=== PATIENT | male | born 1935 | race Caucasian/White ===

== ENCOUNTER 2019-11-14 21:21 | Emergency (ER) | payer MEDICARE, OTHER ==
[~2019-11-14] VITALS: Ht 172.7 cm; Wt 125.0 kg
--- NOTE | 2019-11-14 22:00 | NUR ---
GAVE PATIENT TURKEY SANDWICH,VITAMIN D MILK, ORANGE JUICE AND CRACKERS PATIENT EATING WELL WILL RE CHECK BG AFTER MEAL
[2019-11-14 22:30] VITALS: BP 110/41
[2019-11-14 22:44] LABS: BASOPHILS # (AUTO) 0.1 X10'3 (0-0.2); BASOPHILS % (AUTO) 0.8 % (0-1); EOSINOPHILS # (AUTO) 0.6 X10'3 (0-0.9); EOSINOPHILS % (AUTO) 9.4 % (0-6); HEMATOCRIT 32.6 % (42.0-52.0); HEMOGLOBIN 11.2 g/dl (14.0-17.9); LYMPHOCYTES # (AUTO) 1.4 X10'3 (1.1-4.8); LYMPHOCYTES % (AUTO) 21.3 % (21-51); MEAN CORPUSCULAR HEMOGLOBIN 32.7 PG (27.0-31.0); MEAN CORPUSCULAR HGB CONC 34.4 g/dL (33.0-36.5); MEAN CORPUSCULAR VOLUME 95.1 FL (78-98); MEAN PLATELET VOLUME 7.9 FL (7.4-10.4); MONOCYTES # (AUTO) 0.7 X10'3 (0-0.9); MONOCYTES % (AUTO) 10.3 % (2-12); NEUTROPHILS # (AUTO) 3.9 X10'3 (1.8-7.7); NEUTROPHILS % (AUTO) 58.2 % (42-75); PLATELET COUNT 138 X10'3 (140-440); RED BLOOD COUNT 3.43 X10'6 (4.70-6.10); RED CELL DISTRIBUTION WIDTH 15.5 % (11.5-14.5); WHITE BLOOD COUNT 6.7 X10'3 (4.5-11.0)
[2019-11-14 22:53] LABS: PARTIAL THROMBOPLASTIN TIME 26 SECONDS (22-32)
[2019-11-14 22:55] LABS: ALANINE AMINOTRANSFERASE 30 U/L (12-78); ALBUMIN 3.4 G/DL (3.4-5.0); ALKALINE PHOSPHATASE 77 IU/L (46-116); ANION GAP 7 (8-16); ASPARTATE AMINO TRANSFERASE 34 U/L (10-37); BILIRUBIN,TOTAL 0.5 MG/DL (0.1-1.0); BLOOD UREA NITROGEN 39 MG/DL (7-18); BUN/CREATININE RATIO 32.8 (5.4-32.0); CALCIUM 9.3 MG/DL (8.5-10.1); CHLORIDE 105 MMOL/L (99-107); CREATININE 1.19 MG/DL (0.60-1.10); GLUCOSE 86 MG/DL (70-104); POTASSIUM 4.7 MMOL/L (3.5-5.1); SODIUM 139 MMOL/L (135-145); TOTAL PROTEIN 6.8 G/DL (6.4-8.2); eGFR 58 ML/MIN
[2019-11-14] MEDS ORDERED: dextrose 50%-water 50ml dispensing syringe IV ONE (23:15)
[2019-11-14] MEDS ORDERED: ketorolac tromethamine 15mg/ml inj. IM ONE (23:25)
== END 2019-11-15 00:35 | disposition home or self-care (01) ==
LOC: ER 21:22
DX: E11.649 Type 2 diabetes mellitus with hypoglycemia without coma (principal); M25.511 Pain in right shoulder; M25.569 Pain in unspecified knee; Z72.89 Other problems related to lifestyle; Z88.2 Allergy status to sulfonamides
CPT/HCPCS: 36415; 73030; 80053; 82948; 85025; 85610; 85730; 96372; 99284; J1885

== ENCOUNTER 2020-01-27 13:41 | Inpatient (IN) | payer MEDICARE, OTHER ==
[~2020-01-27] VITALS: Ht 172.7 cm; Wt 121.9 kg
[~2020-01-27 13:41] MED LIST: CARV6.253 PO; DYN250C PO; FERR-39 PO; FURO20TA4 PO; MULT-1085 PO; PIOG30TA71 PO; POTA20TA10 PO; SERT50TA10 PO; SIMV-45 PO; SUCR1TAB PO
[2020-01-27 14:31] LABS: BASOPHILS % (AUTO) 0.3 % (0-1); EOSINOPHILS % (AUTO) 0.1 % (0-6); HEMATOCRIT 30.5 % (42.0-52.0); HEMOGLOBIN 10.3 g/dl (14.0-17.9); LYMPHOCYTES # (AUTO) 1.2 X10'3 (1.1-4.8); LYMPHOCYTES % (AUTO) 12.4 % (21-51); MEAN CORPUSCULAR HEMOGLOBIN 32.5 PG (27.0-31.0); MEAN CORPUSCULAR HGB CONC 33.9 g/dL (33.0-36.5); MEAN CORPUSCULAR VOLUME 95.6 FL (78-98); MEAN PLATELET VOLUME 8.4 FL (7.4-10.4); MONOCYTES # (AUTO) 1.1 X10'3 (0-0.9); MONOCYTES % (AUTO) 11.5 % (2-12); NEUTROPHILS # (AUTO) 7.1 X10'3 (1.8-7.7); NEUTROPHILS % (AUTO) 75.7 % (42-75); PLATELET COUNT 146 X10'3 (140-440); RED BLOOD COUNT 3.19 X10'6 (4.70-6.10); RED CELL DISTRIBUTION WIDTH 14.6 % (11.5-14.5); WHITE BLOOD COUNT 9.4 X10'3 (4.5-11.0)
[2020-01-27 14:45] LABS: ALANINE AMINOTRANSFERASE 17 U/L (12-78); ALBUMIN/GLOBULIN RATIO 0.9 (1.1-1.5); ALKALINE PHOSPHATASE 91 IU/L (46-116); ANION GAP 5 (8-16); ASPARTATE AMINO TRANSFERASE 23 U/L (10-37); BILIRUBIN,TOTAL 0.8 MG/DL (0.1-1.0); BLOOD UREA NITROGEN 27 MG/DL (7-18); CALCIUM 8.4 MG/DL (8.5-10.1); CHLORIDE 94 MMOL/L (99-107); CREATININE 1.35 MG/DL (0.60-1.10); GLUCOSE 249 MG/DL (70-104); SODIUM 124 MMOL/L (135-145); TOTAL CARBON DIOXIDE 24.9 MMOL/L (24-32); TOTAL PROTEIN 6.5 G/DL (6.4-8.2); eGFR 50 ML/MIN
[2020-01-27 15:17] LABS: OCCULT BLOOD STOOL POSITIVE (Neg)
[2020-01-27 15:57] LABS: CLARITY,URINE CLOUDY (Clear); COLOR,URINE YELLOW (Yellow); GLUCOSE, URINE NEGATIVE (Neg); KETONES,URINE NEGATIVE (Neg); LEUKOCYTE ESTERASE ,URINE LARGE (Neg); NITRITES, URINE POSITIVE (Neg); OCCULT BLOOD,URINE MODERATE (Neg); PH,URINE 5.5 (4.8-8.0); PROTEIN,URINE 30 mg/dl (Neg); UA COLLECTION TYPE CLN CATCH MIDSTREAM; UROBILINOGEN,URINE 0.2 E.U/dL (0.2-1.0)
[2020-01-27 16:03] LABS: SQUAMOUS EPITHELIAL CELL,UR MODERATE /LPF (FEW); WBC,URINE TNTC /HPF (0-4)
[2020-01-27 16:09] LABS: BACTERIA,URINE 3+ /HPF (Neg)
[2020-01-27] MEDS ORDERED: ALFU10TA10 PO (16:18)
[2020-01-27] MEDS ORDERED: normal saline 1000ml 1,000 ML IV ONE (16:30)
[2020-01-27] MEDS ORDERED: CefTRIAXone 2gm/D5W 50ml 50 ML IV ONE (16:30)
[2020-01-27] MEDS ORDERED: HYDROcodone/acetaminophen 5mg/325mg tablet PO PRN (16:35)
[2020-01-27] MEDS ORDERED: magnesium Cl slow-release 64mg tablet PO PRN (16:35)
[2020-01-27] MEDS ORDERED: magnesium 2GM in 50ml NS 50 ML IV PRN (16:35)
[2020-01-27] MEDS ORDERED: ondansetron/PF 4mg/2ml inj IV PRN (16:35)
[2020-01-27] MEDS ORDERED: magnesium 4gm in 100ml NS 100 ML IV PRN (16:35)
[2020-01-27] MEDS ORDERED: potassium Cl 20 mEq SR tablet PO PRN ×2 (16:35)
[2020-01-27] MEDS ORDERED: potassium CL 10mEq/100ml bag 100 ML IV PRN ×2 (16:35)
[2020-01-27] MEDS ORDERED: morphine 2 MG/ML inj. syringe IV PRN (16:35)
[2020-01-27] MEDS ORDERED: acetaminophen 325mg tablet PO PRN ×2 (16:35)
[2020-01-27] MEDS ORDERED: normal saline 1000ml 1,000 ML IV SCH (16:35)
[2020-01-27] MEDS ORDERED: glucagon, human recombinant 1mg kit SUBCUT PRN (17:00)
[2020-01-27] MEDS ORDERED: dextrose 50%-water 50ml dispensing syringe IV PRN ×2 (17:00)
[2020-01-27] MEDS ORDERED: MESSAGE TO PHARMACY PO ONE (17:00)
[2020-01-27] MEDS ORDERED: dextrose ORAL solution 15 GM/59 ML bottle PO PRN ×2 (17:00)
--- NOTE | 2020-01-27 17:40 | NUR ---
Patient in room PCU 3014. I have received report from NORMA CUELLAR and had the opportunity to ask questions and assume patient care.
[2020-01-27 17:45] VITALS: BP 128/77
[2020-01-27 18:00] VITALS: BP 150/88
--- NOTE | 2020-01-27 18:05 | NUR ---
Problems reprioritized. Patient report given, questions answered & plan of care reviewed with DANILO RN.
[2020-01-27] MEDS: furosemide 10 MG/1 ML 10ml inj IV SCH (19:18)
[2020-01-27] MEDS: carvedilol 6.25mg tablet PO SCH (19:19)
[2020-01-27] MEDS: docusate sod 100mg capsule PO SCH (19:19)
[2020-01-27] MEDS: heparin, porcine 5000 units/ml vial SQ SCH (19:20)
[2020-01-27] MEDS: insulin Lispro (HumaLOG) vial - multi-dose SQ SCH (19:30)
[2020-01-27] MEDS: K and/or MAG REPLACEMENT MC SCH (20:00)
[2020-01-27] MEDS: tamsulosin 0.4mg capsule PO SCH (20:04)
[2020-01-27] MEDS: insulin glargine (Lantus) pen - multi-dose SQ SCH (22:20)
[2020-01-28] VITALS (7 sets, daily range): BP systolic 96–129; BP diastolic 41–69
[2020-01-28] MEDS ORDERED: PIOG30TA71 PO (05:38)
[2020-01-28 05:50] LABS: BASOPHILS % (AUTO) 0.3 % (0-1); EOSINOPHILS # (AUTO) 0.1 X10'3 (0-0.9); EOSINOPHILS % (AUTO) 1.4 % (0-6); HEMATOCRIT 27.5 % (42.0-52.0); HEMOGLOBIN 9.3 g/dl (14.0-17.9); LYMPHOCYTES % (AUTO) 12.2 % (21-51); MEAN CORPUSCULAR HEMOGLOBIN 32.3 PG (27.0-31.0); MEAN CORPUSCULAR HGB CONC 33.7 g/dL (33.0-36.5); MEAN CORPUSCULAR VOLUME 95.9 FL (78-98); MEAN PLATELET VOLUME 8.5 FL (7.4-10.4); NEUTROPHILS # (AUTO) 6.2 X10'3 (1.8-7.7); NEUTROPHILS % (AUTO) 74.1 % (42-75); PLATELET COUNT 125 X10'3 (140-440); RED BLOOD COUNT 2.86 X10'6 (4.70-6.10); RED CELL DISTRIBUTION WIDTH 14.5 % (11.5-14.5); WHITE BLOOD COUNT 8.3 X10'3 (4.5-11.0)
[2020-01-28 06:12] LABS: ALBUMIN 2.4 G/DL (3.4-5.0); ANION GAP 2 (8-16); BLOOD UREA NITROGEN 31 MG/DL (7-18); CALCIUM 7.8 MG/DL (8.5-10.1); CHLORIDE 97 MMOL/L (99-107); CREATININE 1.35 MG/DL (0.60-1.10); GLUCOSE 143 MG/DL (70-104); MAGNESIUM 1.8 MG/DL (1.5-2.4); POTASSIUM 4.3 MMOL/L (3.5-5.1); SODIUM 124 MMOL/L (135-145); TOTAL CARBON DIOXIDE 24.6 MMOL/L (24-32); eGFR 50 ML/MIN
--- NOTE | 2020-01-28 07:15 | NUR ---
Patient in room PCU 3014. I have received report from Tony CUELLAR and had the opportunity to ask questions and assume patient care.
--- NOTE | 2020-01-28 07:26 | NUR ---
Patient in room PCU 3014. I have received report from ALISA Jimenez and had the opportunity to ask questions and assume patient care. pt sitting up in chair, resting comfortable, no complaints at this time. just worked with pt
[2020-01-28] MEDS: potassium Cl 20 mEq SR tablet PO SCH (08:00)
[2020-01-28] MEDS: K and/or MAG REPLACEMENT MC SCH ×2 (08:00→20:00)
[2020-01-28] MEDS: furosemide 10 MG/1 ML 10ml inj IV SCH ×2 (08:09→16:02)
[2020-01-28] MEDS: carvedilol 6.25mg tablet PO SCH ×2 (08:10→20:00)
[2020-01-28] MEDS: docusate sod 100mg capsule PO SCH ×2 (08:10→20:03)
[2020-01-28] MEDS: sertraline 50mg tablet PO SCH (08:10)
[2020-01-28] MEDS: multivitamins, therapeutics tablet PO SCH (08:10)
[2020-01-28] MEDS: atorvastatin 20mg tablet PO SCH (08:10)
[2020-01-28] MEDS: heparin, porcine 5000 units/ml vial SQ SCH ×2 (08:10→20:03)
[2020-01-28] MEDS: pantoprazole 40mg Tablet.DR PO SCH (08:10)
[2020-01-28] MEDS: insulin Lispro (HumaLOG) vial - multi-dose SQ SCH ×3 (08:27→18:59)
[2020-01-28] MEDS: CefTRIAXone 2gm/D5W 50ml 50 ML IV SCH (08:52)
[2020-01-28] MEDS ORDERED: furosemide 10 MG/1 ML 10ml inj IV SCH (11:58)
--- NOTE | 2020-01-28 13:23 | NUR ---
DM Consult: A1C 7.1. Pt admit w/ increased SOB, CHF, and likely chronic hyponatremia per . Pt AOx3 at this time. Written DM ed w/ RD contact information placed in pt chart. Addendum: 01/28/20 at [address] Amended: Links added.
--- NOTE | 2020-01-28 14:25 | NUR ---
Patient arrived on PCU. Assessed upon arrival. Two RN skin check completed. Belongings placed in pt specific closet. Stable, oriented to room and resting in bed. Telemetry monitoring on and vital signs obtained- 98 - 108p - 24r - 94% - 104/68 Addendum: 01/28/20 at 1434 by Kellen Palafox RN Wrong pt
--- NOTE | 2020-01-28 16:10 | NUR ---
pt given diabetes survival skills, chf education, cardiac rehab education
--- NOTE | 2020-01-28 17:18 | NUR ---
[place]rientee documentation: I have reviewed and agree with all interventions, assessments performed and documented by ALISA Foreman.
--- NOTE | 2020-01-28 17:19 | NUR ---
[place] Medication Administration: For this medication-pass time frame, all medication were reviewed, dispensed, administered and documented per hospital policy by ALISA Foreman.
--- NOTE | 2020-01-28 18:15 | NUR ---
Problems reprioritized. Patient report given, questions answered & plan of care reviewed with Ranjana CUELLAR.
--- NOTE | 2020-01-28 18:17 | NUR ---
Patient in room PCU 3014. I have received report from Judy CUELLAR and Klelen CUELLAR and had the opportunity to ask questions and assume patient care.
--- NOTE | 2020-01-28 18:37 | NUR ---
Problems reprioritized. Patient report given, questions answered & plan of care reviewed with ALISA Chilel.
[2020-01-28] MEDS: tamsulosin 0.4mg capsule PO SCH (20:02)
[2020-01-28] MEDS: lactobacillus rhamnosus 10,000 MMU CELLS/CAPSULE PO SCH (20:03)
[2020-01-28] MEDS: insulin glargine (Lantus) pen - multi-dose SQ SCH (21:53)
[2020-01-29 02:00] VITALS: BP 106/43
[2020-01-29 05:56] LABS: BASOPHILS % (AUTO) 0.4 % (0-1); EOSINOPHILS # (AUTO) 0.1 X10'3 (0-0.9); EOSINOPHILS % (AUTO) 2.1 % (0-6); HEMATOCRIT 27.2 % (42.0-52.0); HEMOGLOBIN 9.3 g/dl (14.0-17.9); LYMPHOCYTES # (AUTO) 1.1 X10'3 (1.1-4.8); LYMPHOCYTES % (AUTO) 16.4 % (21-51); MEAN CORPUSCULAR HEMOGLOBIN 32.3 PG (27.0-31.0); MEAN CORPUSCULAR VOLUME 94.8 FL (78-98); MEAN PLATELET VOLUME 8.3 FL (7.4-10.4); MONOCYTES # (AUTO) 0.9 X10'3 (0-0.9); MONOCYTES % (AUTO) 13.1 % (2-12); NEUTROPHILS # (AUTO) 4.4 X10'3 (1.8-7.7); PLATELET COUNT 132 X10'3 (140-440); RED BLOOD COUNT 2.87 X10'6 (4.70-6.10); RED CELL DISTRIBUTION WIDTH 14.2 % (11.5-14.5); WHITE BLOOD COUNT 6.5 X10'3 (4.5-11.0)
--- NOTE | 2020-01-29 06:17 | NUR ---
Problems reprioritized. Patient report given, questions answered & plan of care reviewed with Kellen CUELLAR and Sumaya CUELLAR.
[2020-01-29 06:21] LABS: ALBUMIN 2.2 G/DL (3.4-5.0); ANION GAP 8 (8-16); BLOOD UREA NITROGEN 31 MG/DL (7-18); BUN/CREATININE RATIO 25.8 (5.4-32.0); CALCIUM 8.1 MG/DL (8.5-10.1); CHLORIDE 95 MMOL/L (99-107); GLUCOSE 136 MG/DL (70-104); MAGNESIUM 1.7 MG/DL (1.5-2.4); POTASSIUM 3.5 MMOL/L (3.5-5.1); SODIUM 127 MMOL/L (135-145); TOTAL CARBON DIOXIDE 24.3 MMOL/L (24-32); eGFR 57 ML/MIN
--- NOTE | 2020-01-29 06:54 | NUR ---
Patient in room PCU 3014. I have received report from Ranjana CUELLAR and had the opportunity to ask questions and assume patient care.
[2020-01-29 07:00] VITALS: BP 121/52
[2020-01-29] MEDS: atorvastatin 20mg tablet PO SCH (07:30)
[2020-01-29] MEDS: pantoprazole 40mg Tablet.DR PO SCH (07:30)
[2020-01-29] MEDS: multivitamins, therapeutics tablet PO SCH (07:30)
[2020-01-29] MEDS: sertraline 50mg tablet PO SCH (07:31)
[2020-01-29] MEDS: lactobacillus rhamnosus 10,000 MMU CELLS/CAPSULE PO SCH ×2 (07:31→20:33)
[2020-01-29] MEDS: potassium Cl 20 mEq SR tablet PO SCH (07:31)
[2020-01-29] MEDS: heparin, porcine 5000 units/ml vial SQ SCH ×2 (07:32→20:33)
[2020-01-29] MEDS: furosemide 10 MG/1 ML 10ml inj IV SCH ×2 (07:35→15:36)
[2020-01-29] MEDS: carvedilol 6.25mg tablet PO SCH ×3 (08:00→20:33)
[2020-01-29] MEDS: docusate sod 100mg capsule PO SCH ×2 (08:00→20:00)
[2020-01-29] MEDS: K and/or MAG REPLACEMENT MC SCH ×2 (08:00→20:00)
[2020-01-29] MEDS: CefTRIAXone 2gm/D5W 50ml 50 ML IV SCH (08:25)
[2020-01-29] MEDS: insulin Lispro (HumaLOG) vial - multi-dose SQ SCH ×3 (08:27→19:48)
[2020-01-29 11:00] VITALS: BP 117/47
--- NOTE | 2020-01-29 11:57 | NUR ---
Nutrition consult: Pt PO improving to 75-100% last 2 meals up from 50-75% initial PO first day. LBM 01/27. DM already addressed; see prior RD note. RD d/w RN regarding cancelling heart healthy diet order if MD agreeable w/ Na 127. Severe 4+ pitting edema to BLE noted w/ mild weakness and BMI 41; currently not enough criteria to qualify for malnutrition either. No immediate nutrition concerns at this time. Will continue to monitor. Addendum: 01/29/20 at [address] Amended: Links added.
[2020-01-29 15:00] VITALS: BP 113/50
[2020-01-29] MEDS: levoFLOXACIN 500mg tablet PO SCH (15:37)
--- NOTE | 2020-01-29 17:53 | NUR ---
[place]rientee documentation: I have reviewed and agree with all interventions, assessments performed and documented by ALISA Foreman.
--- NOTE | 2020-01-29 18:47 | NUR ---
Problems reprioritized. Patient report given, questions answered & plan of care reviewed with ALISA Miles.
[2020-01-29 19:00] VITALS: BP 119/56
[2020-01-29] MEDS: tamsulosin 0.4mg capsule PO SCH (20:33)
[2020-01-29] MEDS: insulin glargine (Lantus) pen - multi-dose SQ SCH (21:00)
[2020-01-29 23:00] VITALS: BP 116/51
[2020-01-30 03:00] VITALS: BP 118/54
[2020-01-30 06:22] LABS: BASOPHILS % (AUTO) 0.6 % (0-1); EOSINOPHILS # (AUTO) 0.3 X10'3 (0-0.9); EOSINOPHILS % (AUTO) 6.8 % (0-6); HEMATOCRIT 28.9 % (42.0-52.0); HEMOGLOBIN 9.7 g/dl (14.0-17.9); LYMPHOCYTES # (AUTO) 1.1 X10'3 (1.1-4.8); LYMPHOCYTES % (AUTO) 21.8 % (21-51); MEAN CORPUSCULAR HEMOGLOBIN 31.7 PG (27.0-31.0); MEAN CORPUSCULAR HGB CONC 33.6 g/dL (33.0-36.5); MEAN CORPUSCULAR VOLUME 94.6 FL (78-98); MEAN PLATELET VOLUME 8.5 FL (7.4-10.4); MONOCYTES # (AUTO) 0.8 X10'3 (0-0.9); MONOCYTES % (AUTO) 16.7 % (2-12); NEUTROPHILS # (AUTO) 2.7 X10'3 (1.8-7.7); NEUTROPHILS % (AUTO) 54.1 % (42-75); PLATELET COUNT 163 X10'3 (140-440); RED BLOOD COUNT 3.05 X10'6 (4.70-6.10); RED CELL DISTRIBUTION WIDTH 14.3 % (11.5-14.5); WHITE BLOOD COUNT 4.9 X10'3 (4.5-11.0)
[2020-01-30 06:30] LABS: ALBUMIN 2.3 G/DL (3.4-5.0); ANION GAP 6 (8-16); BLOOD UREA NITROGEN 29 MG/DL (7-18); BUN/CREATININE RATIO 23.2 (5.4-32.0); CALCIUM 8.2 MG/DL (8.5-10.1); CHLORIDE 96 MMOL/L (99-107); CREATININE 1.25 MG/DL (0.60-1.10); GLUCOSE 135 MG/DL (70-104); MAGNESIUM 1.5 MG/DL (1.5-2.4); POTASSIUM 3.3 MMOL/L (3.5-5.1); SODIUM 130 MMOL/L (135-145); eGFR 55 ML/MIN
--- NOTE | 2020-01-30 06:32 | NUR ---
Patient in room PCU 3014. I have received report from Ginger CUELLAR and had the opportunity to ask questions and assume patient care.
[2020-01-30 07:04] VITALS: BP 114/49
[2020-01-30 07:39] LABS: TOTAL CELLS COUNTED 100
[2020-01-30 07:40] LABS: PLATELET ESTIMATE NORMAL
[2020-01-30] MEDS: furosemide 10 MG/1 ML 10ml inj IV SCH (07:41)
[2020-01-30] MEDS: multivitamins, therapeutics tablet PO SCH (07:42)
[2020-01-30] MEDS: heparin, porcine 5000 units/ml vial SQ SCH (07:42)
[2020-01-30] MEDS: pantoprazole 40mg Tablet.DR PO SCH (07:42)
[2020-01-30] MEDS: lactobacillus rhamnosus 10,000 MMU CELLS/CAPSULE PO SCH (07:42)
[2020-01-30] MEDS: atorvastatin 20mg tablet PO SCH (07:42)
[2020-01-30] MEDS: sertraline 50mg tablet PO SCH (07:42)
[2020-01-30] MEDS: carvedilol 6.25mg tablet PO SCH (07:42)
[2020-01-30] MEDS: potassium Cl 20 mEq SR tablet PO SCH (07:42)
[2020-01-30] MEDS: K and/or MAG REPLACEMENT MC SCH (08:00)
[2020-01-30] MEDS: docusate sod 100mg capsule PO SCH (08:00)
[2020-01-30] MEDS: insulin Lispro (HumaLOG) vial - multi-dose SQ SCH (09:09)
[2020-01-30] MEDS ORDERED: LEVO250T58 PO (10:12)
[2020-01-30] MEDS ORDERED: FURO20TA4 PO (10:12)
[2020-01-30] MEDS ORDERED: POTA20TA19 PO (10:17)
[2020-01-30 11:00] VITALS: BP 117/47
[2020-01-30] MEDS: levoFLOXACIN 500mg tablet PO SCH (11:39)
--- NOTE | 2020-01-30 12:17 | NUR ---
Pt has been discharged and left PCU floor per MD. Pt stable and PIV and tele discontinued. Discharge orders reviewed and new prescriptions and sent to [facility] pharmacy as preferred by patient. DR Oneill office called to set up follow up appointment. [facility] stated they will contact patient to make an appointment. Pt is aware of this plan and aware that home health and physical therapy will be following up with him. All patient belongings are accounted for and sent with patient. Daughter Julia is patients ride.
--- NOTE | 2020-01-30 13:23 | NUR ---
[place]rientee documentation: I have reviewed and agree with all interventions, assessments performed and documented by ALISA Foreman .
--- NOTE | 2020-02-01 09:39 | NUR ---
Case management DC follow up: LMVM post DC status, questions, concerns
== END 2020-01-30 12:17 | disposition home health service (06) | DRG 291 ==
LOC: ER 13:41 → ED HOLD 16:35 → PCU 3S 17:56
PROVIDERS: ADMIT Internal Medicine; ATTEND Family Medicine
DX: I13.0 Hypertensive heart and chronic kidney disease with heart failure and stage 1 through stage 4 chronic kidney disease, or unspecified chronic kidney disease (principal); I50.43 Acute on chronic combined systolic (congestive) and diastolic (congestive) heart failure; E87.1 Hypo-osmolality and hyponatremia; N39.0 Urinary tract infection, site not specified; B96.89 Other specified bacterial agents as the cause of diseases classified elsewhere; D64.9 Anemia, unspecified; E11.22 Type 2 diabetes mellitus with diabetic chronic kidney disease; F32.9 Major depressive disorder, single episode, unspecified; E78.5 Hyperlipidemia, unspecified; N18.3 Chronic kidney disease, stage 3 (moderate); Z95.2 Presence of prosthetic heart valve; Z88.2 Allergy status to sulfonamides
CPT/HCPCS: 36415; 71045; 80048; 80053; 81001; 82272; 82948; 83036; 83605; 83735; 83880; 84145; 85025; 87040; 87077; 87081; 87088; 87186; 93005; 96365; 97110; 97116; 97162; 97530; 99285; G0378; J0696; J1644; J1815; J1940; J7030

== ENCOUNTER 2020-03-05 11:10 | Emergency (ER) | payer MEDICARE, OTHER ==
[~2020-03-05] VITALS: Ht 172.7 cm; Wt 120.0 kg
[~2020-03-05 11:10] MED LIST changes: +ALFU10TA10 PO; -DYN250C PO
[2020-03-05 11:12] VITALS: BP 128/62
[2020-03-05] MEDS ORDERED: HYDR-3965 PO ×2 (13:11→13:15)
[2020-03-05] MEDS ORDERED: HYDR-4353 PO (13:11)
[2020-03-06] MEDS ORDERED: GLIP10TA21 PO (13:20)
[2020-03-06] MEDS ORDERED: LISI10TA4 PO (13:20)
[2020-03-06] MEDS ORDERED: PANT40TA4 PO (13:20)
[2020-03-06] MEDS ORDERED: SPIR25TA5 PO (13:20)
[2020-03-06] MEDS ORDERED: BUME1TAB8 PO (13:20)
== END 2020-03-05 13:21 | disposition home or self-care (01) ==
LOC: ER 11:12
DX: M25.511 Pain in right shoulder (principal); I50.9 Heart failure, unspecified; I11.0 Hypertensive heart disease with heart failure; E11.9 Type 2 diabetes mellitus without complications; Z72.89 Other problems related to lifestyle; Z88.2 Allergy status to sulfonamides; Z79.899 Other long term (current) drug therapy
CPT/HCPCS: 73030; 99284